=== PATIENT | female | born 1970 | race Two or more races ===

== ENCOUNTER 2020-04-12 10:24 | Outpatient (CLI) | payer OTHER ==
[~2020-04-12 10:24] MED LIST: COZAAR100 MG PO; NABUMETONE500 MG PO; NORVASC5 MG PO; PERCOCET 5/3251 TAB PO; PLAVIX75 MG; ZANTAC300 MG PO; ZOCOR20 MG PO
== END 2020-04-12 10:30 | disposition home or self-care (01) ==
LOC: SONOGRAMA 10:24
PROVIDERS: ATTEND Pathology Anatomic Pathology
DX: E04.2 Nontoxic multinodular goiter (principal)

== ENCOUNTER 2023-02-27 14:16 | Outpatient (CLI) | payer OTHER | END 2023-02-27 14:31 | disposition home or self-care (01) | LOC: RAD 14:16 | PROVIDERS: ATTEND Orthopaedic Surgery | DX: S93.432A Sprain of tibiofibular ligament of left ankle, initial encounter (principal) ==